=== PATIENT | male | born 1980 | race Caucasian/White ===

== ENCOUNTER 2023-07-26 10:57 | Outpatient (AMB) | payer OTHER, SELFPAY ==
--- NOTE | 2023-07-26 11:20 | MHC.OFFWIV ---
Intake Vital Signs 07/26/23 11:21 07/26/23 11:23 Height 5 ft 7 in Weight 266 lb 2 oz BMI 41.7 BP 144/83 H 143/89 H Blood Pressure Location Lt brachial Rt radial Position Sitting Sitting Respiration 16 Pulse 96 Pulse Source Pulse Oximeter Temp 97.9 F Temp Source Temporal Artery Scan Pulse Oximetry (%) 98 Oxygen Delivery Method Room Air Intake Visit Reasons: Neck pain Intake Note: Neck pain Patient Tobacco Use Status: Never used Tobacco Allergies No Known Allergies Allergy (Verified 07/26/23 11:21) Medication List - Last Reconciled 07/26/23 by Zaria Loco PA-C No Known Home Meds Do you need a note to return to daycare/school/sports/work: No HPI Neck pain HPI Details Pt is a 43 y/o male without any signficant pmhx, who presents neck pain that started 3 days ago. He thinks he woke up with a left sided stiff neck. He states moving his neck up and down is fine but going side to side is painful. He states turning to the right is harder. He has tried tylenol and motrin without relief. He states he tried a pill of oxycodone from previous surgery without relief. No fevers or chills. No headache. No visions changes, numbness/tingling, weakness. No tick bites. No previous surgery. No cp or sob. Denies any known history of hypertension. Blood pressure is a bit elevated today in the office and he thinks is due to his neck pain. PFSH Social History Patient Tobacco Use Status: Never used Tobacco Physical Exam Vital Signs: Last Vital Signs Temp 97.9 F 07/26/23 11:21 Pulse 96 07/26/23 11:21 Resp 16 07/26/23 11:21 BP 143/89 H 07/26/23 11:23 Pulse Ox 98 07/26/23 11:21 Oxygen Delivery Method Room Air 07/26/23 11:21 BMI result Body Mass Index 41.7 Const Orientation/consciousness: patient oriented x3 HEENT Ears: hearing grossly normal bilaterally Neck Other: Tenderness to palpation over the left cervical paraspinous muscles, left trapezius and scalene muscles. A muscle spasm is noted on the left trapezius. Neck: Yes normal visual inspection and Yes no meningeal signs Thyroid: Thyroid normal Lymphatic: no lymphadenopathy noted Resp Auscultation: clear to auscultation bilaterally Cardio Rate: regular rate Rhythm: regular rhythm Heart sounds: S1 normal heart sound present and S2 normal heart sound present Skin General skin exam: no rashes or lesions noted Neuro General: patient oriented x3, gait normal, no meningeal signs and no focal motor deficits Assessment & Plan Assessment & Plan (1) Cervical pain (neck): Code(s): M54.2 - Cervicalgia Plan: xray ordered will start naproxen and cyclobenzaprine. (2) Elevated blood pressure reading without diagnosis of hypertension: Code(s): R03.0 - Elevated blood-pressure reading, without diagnosis of hypertension Plan: Advised patient short term follow up with PCP to review. Patient understands and agrees with the plan. Orders: Orders XR cervical spine 3V Today M54.2 - Cervicalgia Medications: New cyclobenzaprine 10 mg PO TID 30 tabs 0RF 10 days naproxen 500 mg PO BID 60 tabs 0RF Coding Level of Care Code New Pt Level 3 (93657) Diagnoses Cervical pain (neck) M54.2 Elevated blood pressure reading without diagnosis of hypertension R03.0
[2023-07-26 11:21] VITALS: BP 144/83; PULSE 96; RESP 16; TEMP 36.6; O2SAT 98; BMI 41.7
[2023-07-26 11:23] VITALS: BP 143/89
== END 2023-07-26 12:08 | disposition home or self-care (01) ==
PROVIDERS: Visit Provider Physician Assistant
DX: M54.2 Cervicalgia (principal); R03.0 Elevated blood-pressure reading, without diagnosis of hypertension
CPT/HCPCS: 99203

== ENCOUNTER 2023-07-26 12:41 | Outpatient (REF) | payer OTHER, SELFPAY ==
--- NOTE | ~2023-07-26 | XR_ITS ---
EXAMINATION: XR CERVICAL SPINE CLINICAL INFORMATION: Patient states that her neck for 3 days, no trauma. COMPARISON: None available. TECHNIQUE: 4 views of the cervical spine. FINDINGS: Hardware minimally imaged in the upper central thorax. Straightening of the normal cervical lordosis. Degenerative changes between the anterior arch of C1 and the odontoid. Multilevel cervical spondylosis with moderate loss of disc space height and abundant hypertrophic change at C4-C5. XR/XR cervical spine 3V IMPRESSION: Multilevel cervical spondylosis most notable at C4-C5.
== END 2023-07-26 12:42 | disposition home or self-care (01) ==
LOC: HO.XRAY 12:41
PROVIDERS: PCP Physician Assistant Medical; Visit Provider Physician Assistant
DX: M54.2 Cervicalgia (principal)
CPT/HCPCS: 72040

== ENCOUNTER 2024-02-18 09:31 | Outpatient (AMB) | payer OTHER, SELFPAY ==
--- NOTE | 2024-02-18 09:33 | MHC.OFFWIV ---
Intake Vital Signs 02/18/24 09:36 02/18/24 10:10 Height 5 ft 10 in BP 134/76 Blood Pressure Location Rt brachial Position Sitting Respiration 14 Pulse 105 H 85 Pulse Source Pulse Oximeter Auscultation Pulse Oximetry (%) 96 Oxygen Delivery Method Room Air Intake Visit Reasons: congestion, ear pain Intake Note: Patient complaining of heavy congestion and pressure on head and both ears x 2 days Patient Tobacco Use Status: Never used Tobacco Allergies No Known Allergies Allergy (Verified 02/18/24 10:01) Medication List - Last Reconciled 02/18/24 by Flor Garcia, REGISTERED NURSE TEACHER- cyclobenzaprine 10 mg PO TID PRN naproxen 500 mg PO BID PRN semaglutide (weight loss) (Wegovy) 0.5 mg (0.5 mL) subcut QWEEK Do you need a note to return to daycare/school/sports/work: No HPI HPI Comments History of Present Illness Details The patient is a 43-year-old male presenting with ear pain, head congestion, and chest congestion of two days duration. He denies any fever or recent contact with anyone who is ill. The patient has a past medical history of asthma, which has not been active for over 20 years. At this time last year, he was diagnosed with a streptococcal pharyngitis, respiratory syncytial virus (RSV), and bilateral acute otitis media. Treatment at that time included amoxicillin, which was prescribed by his primary care provider. During the current episode, he experiences congestion affecting his head, chest, and ears. Initial self-management with [id number] Mucinex and Tylenol has provided inadequate relief of symptoms. Exam Awake alert NAD Sclera and conjunctiva clear bilat Nares with clear drainage bilat, turbinates edematous and erythematous, no sinus tenderness with palpation bilat TM intact + erythema and injection bilat L>R MMM, pharynx with exudate on L only RRR LS CTAB Plan - Initiate Amoxicillin/Clavulanate Augmentin) 1 tablet twice daily with food for seven days; advise on the potential for gastrointestinal upset. - Prescribe Fluticasone nasal spray, one spray per nostril twice daily, to be used until symptoms resolve. - Instruct the patient to replace toothbrush and change bed linens after 48 hours of antibiotic therapy to prevent reinfection. - Continue use of Mucinex and Tylenol as needed for symptom relief. - Educate the patient on signs of worsening symptoms or complications, and advise re-evaluation if no improvement within 48 hours or if symptoms worsen. Patient was informed and verbally consented to the use of an ambient scribe for clinic note documentation during this visit. [facility] Medical History (Updated 08/31/23 @ 17:23 by SIXTO Burt) Morbid obesity Hepatic steatosis Grief Acid reflux Psoriasis Emmet disease Arthritis Asthma Surgical History (Updated 08/31/23 @ 16:35 by Asia Perez CMA) H/O gastric sleeve Hx of laparoscopic gastric banding Status post LASIK surgery Family History (Updated 08/31/23 @ 16:37 by Asia Perez CMA) Mother Hypertension Diabetes Cardiovascular disease Thyroid disease Maternal Grandmother Hypertension Cardiovascular disease Pancreatic cancer Social History (Updated 08/31/23 @ 16:39 by Asia Perez CMA) Household Members: None Housing: House 75 years or older and lives alone: No Alcohol intake: never Patient Tobacco Use Status: Never used Tobacco e-Cigarette/Vaping Use: Never Used Second Hand Smoke Exposure: No service: No Current occupational status: unemployed Current occupational exposures/hazards: No Cognitive needs: No Hearing needs: No Vision needs: No Physical Exam Vital Signs: Last Vital Signs Pulse 105 H 02/18/24 09:36 Resp 14 02/18/24 09:36 BP 134/76 02/18/24 09:36 Pulse Ox 96 02/18/24 09:36 Oxygen Delivery Method Room Air 02/18/24 09:36 Assessment & Plan Assessment & Plan (1) Strep pharyngitis: Code(s): J02.0 - Streptococcal pharyngitis (2) Acute otitis media: Code(s): H66.90 - Otitis media, unspecified, unspecified ear Qualifiers: Otitis media type: suppurative Laterality: bilateral Recurrence: non-recurrent Spontaneous tympanic membrane rupture: without spontaneous rupture Qualified Code(s): H66.003 - Acute suppurative otitis media without spontaneous rupture of ear drum, bilateral Plan . Medications: New amoxicillin-pot clavulanate 875-125 mg 1 tab PO BID 7 days 14 tabs 0RF fluticasone propionate 50 mcg/actuation administer into each nostril 1 spray intranasal BID 16 grams 0RF Patient Instructions: Good hand hygiene and respiratory etiquette can reduce the spread of all types of group A strep infection. Hand hygiene is especially important after coughing and sneezing and before preparing foods or eating. Good respiratory etiquette involves covering your cough or sneeze. Do not share food or drinks. Treating an infected person with an antibiotic for 12 hours or longer limits their ability to transmit the bacteria. Thus, people with group A strep pharyngitis should stay home from work, school, or daycare until: They are afebrile AND At least 12?24 hours after starting appropriate antibiotic therapy I also recommend changing toothbrush and washing bed linen in hot water 24 hours after starting antibiotics Coding Level of Care Code Est Pt Level 3 (22104) Diagnoses Strep pharyngitis J02.0 Non-recurrent acute suppurative otitis media of both ears without spontaneous rupture of tympanic membranes H66.003 Otitis media type: suppurative Laterality: bilateral Recurrence: non-recurrent Spontaneous tympanic membrane rupture: without spontaneous rupture
[2024-02-18 09:36] VITALS: BP 134/76; PULSE 105; RESP 14; O2SAT 96
[2024-02-18 10:10] VITALS: PULSE 85
== END 2024-02-18 10:13 | disposition home or self-care (01) ==
LOC: HO.HMCWIW 09:31
PROVIDERS: PCP Physician Assistant Medical; Visit Provider Nurse Practitioner Family
DX: J02.0 Streptococcal pharyngitis (principal); H66.003 Acute suppurative otitis media without spontaneous rupture of ear drum, bilateral

== ENCOUNTER → 2024-02-18 09:31 | Outpatient (BNVA) | payer OTHER, SELFPAY | PROVIDERS: PCP Physician Assistant Medical; Visit Provider Nurse Practitioner Family | DX: J02.0 Streptococcal pharyngitis (principal); H66.003 Acute suppurative otitis media without spontaneous rupture of ear drum, bilateral | CPT/HCPCS: 99212 ==

== ENCOUNTER 2024-03-24 15:01 | Outpatient (AMB) | payer OTHER, SELFPAY ==
--- NOTE | 2024-03-24 15:25 | A.OFFPC_ITS ---
Vital Signs 03/24/24 15:27 Height 5 ft 10 in Weight 269 lb 2 oz BMI 38.6 BP 136/64 Blood Pressure Location Lt brachial Position Sitting Pulse 72 Pulse Source Pulse Oximeter Pulse Oximetry (%) 98 Oxygen Delivery Method Room Air Intake Visit Reasons: Wegovy Medication Intake Note: Follow up Wegovy. Toannt had Wegovy for a month Child Caregiver Private Home Required: No Allergies No Known Allergies Allergy (Verified 03/24/24 15:25) Tobacco use date assessed: 08/31/23 Dental Screening Dental Screen Date: 08/31/23 HPI HPI Comments History of Present Illness Details This is a 43-year-old male with a past medical history of hepatic steatosis, GERD, obesity, TERESA and neck pain presenting for follow up. Patient had a gastric sleeve procedure in April 2023. This is with Dr. Desir. Weight loss has been slow so he started Wegovy. He is taking 0.5 mg weekly. He denies side effects, but it is not helping him lose weight at this dosage. He is trying to walk and eat healthy, but he has not been 100% focused because his mother on Jun 24 2023 on hospice. He also lost his job last year. 3-year-old daughter has been sick for the past week which is stressful. He is interested in seeing weight loss management/bariatric surgery at [facility] for a 2nd opinion. He wonders if he should have had a different procedure rather than gastric sleeve. TERESA-was not able to tolerate mask. Not interested in referral back to sleep Medicine at this time or sleep study. He is avoiding alcohol. He is sleeping on his side. We also discussed he could try a mandibular advancement device and wedge pillow. Patient does not have a diagnosis of hypertension. Blood pressure today is 136/64. He has not been sleeping well with his daughter being sick this week. Patient did not end up seeing a therapist after his mother because it was 2-1/2 months until he was contacted by behavioral health, and there was a language barrier with the provider. He says he is doing okay. PHQ-9 is positive though he says some of these answers are related to stressors within the past week and using food as a coping mechanism for this. I did give him the information for [facility] which is for grief counseling online, and he may look into this. Declines further referrals at this time. ROS: Constitutional: No unexplained weight loss, fever, chills or night sweats. Eyes: No vision changes, blurry vision Respiratory: No shortness of breath, cough or sputum production. Cardiovascular: No chest pain, chest pressure or chest discomfort. No palpitations or pedal edema. Gastrointestinal: No anorexia, nausea, vomiting or diarrhea. No abdominal pain or blood in stool. Neurologic: No headache, dizziness, syncope Psychiatric: No SI/HI. Physical exam: Constitutional: Alert, in no distress. Neck: Supple, Full range of motion. No lymphadenopathy. No palpable thyroid masses. Respiratory: Clear to auscultation. Cardiovascular: S1 S2 regular. No murmurs. Extremities: Warm and well perfused. No clubbing, cyanosis or edema. Psychiatric: Normal mood and affect [facility] Medical History (Updated 08/31/23 @ 17:23 by SIXTO Burt) Morbid obesity Hepatic steatosis Grief Acid reflux Psoriasis Roosevelt disease Arthritis Asthma Surgical History (Updated 08/31/23 @ 16:35 by Asia Perez CMA) H/O gastric sleeve Hx of laparoscopic gastric banding Status post LASIK surgery Family History (Updated 08/31/23 @ 16:37 by Asia Perez CMA) Mother Hypertension Diabetes Cardiovascular disease Thyroid disease Maternal Grandmother Hypertension Cardiovascular disease Pancreatic cancer Social History (Updated 08/31/23 @ 16:39 by Asia Perez [facility]) Household Members: None Housing: House 75 years or older and lives alone: No Alcohol intake: never Patient Tobacco Use Status: Never used Tobacco e-Cigarette/Vaping Use: Never Used Second Hand Smoke Exposure: No service: No Current occupational status: unemployed Current occupational exposures/hazards: No Cognitive needs: No Hearing needs: No Vision needs: No Questionnaire PHQ-9 Over the last 2 weeks, how often have you been bothered by any of the following problems? 1. Little interest or pleasure in doing things: not at all 2. Feeling down, depressed, or hopeless: several days 3. Trouble falling or staying asleep, or sleeping too much: more than half the days 4. Feeling tired or having little energy: more than half the days 5. Poor appetite or overeating: nearly every day 6. Feeling bad about yourself - or that you are a failure or have let yourself or your family down: not at all 7. Trouble concentrating on things, such as reading the newspaper or watching television: several days 8. Moving or speaking so slowly that other people could have noticed. Or the opposite - being so fidgety or restless that you have been moving around a lot more than usual: not at all 9. Thoughts that you would be better off or of hurting yourself in some way: not at all Total score: 9 Source: Developed by Drs. Eugenio Miller, Balaji Smalls and colleagues, with an educational kalpana from [employer]. Thrive Questionnaire Date Thrive assessed: 03/04/24 I am a: Patient What is your living situation today?: I have a steady place to live Within the past 12 months, did the food you bought not last and you didn't have the money to get more?: Never true Within the past 12 months, did you worry whether your food would run out before you got money to buy more?: Sometimes True Do you have trouble paying for medicines?: No Do you have trouble getting transportation to medical appointments?: No Do you have trouble paying your heating and electricity bill?: Yes Do you have trouble taking care of your child, family member or friend?: No Do you have trouble with day-to-day activities such as bathing, preparing meals, shopping, managing finances, etc.?: No Are you currently unemployed and looking for a job?: No Are you interested in more education?: No Please select the resources that you would like help with: None Currently or been in a relationship where the following occur: No concerns reported THRIVE Score: 2 MARKO-7 AMB Questionnaire MARKO-7 Date MARKO - 7 assessed: 08/31/23 Source: Developed by Drs. Eugenio Miller, Alexus Raza, Balaji Redd and colleagues, with an educational kalpana from [employer]. Physical exam (Primary Care) Vital Signs: Last Vital Signs Pulse 72 03/24/24 15:27 BP 136/64 03/24/24 15:27 Pulse Ox 98 03/24/24 15:27 Oxygen Delivery Method Room Air 03/24/24 15:27 BMI result Body Mass Index 38.6 Tobacco/Smoking Status: Tobacco use Status Tobacco use date assessed 08/31/23 03/24/24 15:31 Patient Tobacco Use Status Never used Tobacco 03/24/24 15:31 e-Cigarette/Vaping Use Never Used 03/24/24 15:31 PHQ-9: PHQ-9 Score PHQ-9: Total score 9 03/24/24 15:31 Thrive Assessment: Date of Thrive Assessment Date Thrive assessed 03/04/24 03/24/24 15:31 Currently or been in a relationship where the following occur: No concerns reported Coding Level of Care Code Est Pt Level 4 (07120) Complex EM visit Add On G2211 Diagnoses Morbid obesity E66.01 Elevated blood pressure reading without diagnosis of hypertension R03.0 Assessment & Plan Assessment & Plan (1) Morbid obesity: Code(s): E66.01 - Morbid (severe) obesity due to excess calories Category: Medical Plan: Continue efforts at weight loss. Reviewed portion sizes and meal planning. Patient referred to weight management/bariatric surgery at [facility]. Increase Wegovy to 1 mg weekly. Side effects and administration reviewed. Patient instructed to send me a message on the portal in a few weeks after trying this dosage. He deferred follow up in person for this. (2) Elevated blood pressure reading without diagnosis of hypertension: Code(s): R03.0 - Elevated blood-pressure reading, without diagnosis of hypertension Category: Medical Plan: Restrict sodium, reduce stress when possible, avoid caffeine. Recheck at physical exam in 3 months. Plan Follow up in 3 months for a physical exam. He will have fasting labs done prior to this. Orders: Orders Lipid Panel Today E66.01 - Morbid (severe) obesity due to excess calories, E78.5 - Hyperlipidemia, unspecified, E80.4 - Gilbert syndrome, K76.0 - Fatty (change of) liver, not elsewhere classified, L40.9 - Psoriasis, unspecified Comprehensive Met. Panel Today E66.01 - Morbid (severe) obesity due to excess calories, E80.4 - Gilbert syndrome, K76.0 - Fatty (change of) liver, not elsewhere classified, L40.9 - Psoriasis, unspecified TSH reflex Free T4 Today E66.01 - Morbid (severe) obesity due to excess calories, E80.4 - Gilbert syndrome, K76.0 - Fatty (change of) liver, not elsewhere classified, L40.9 - Psoriasis, unspecified Complete Blood Count no Diff Today E66.01 - Morbid (severe) obesity due to excess calories, E80.4 - Gilbert syndrome, K76.0 - Fatty (change of) liver, not elsewhere classified, L40.9 - Psoriasis, unspecified Prostate Specific Antigen Today E66.01 - Morbid (severe) obesity due to excess calories, E80.4 - Gilbert syndrome, K76.0 - Fatty (change of) liver, not elsewhere classified, L40.9 - Psoriasis, unspecified, Z12.5 - Encounter for screening for malignant neoplasm of prostate Referrals Bariatric Surgery Referral E66.01 - Morbid (severe) obesity due to excess calories, E66.9 - Obesity, unspecified Medications: New semaglutide (weight loss) (Wegovy) administer weeks 9 through 12 of therapy 1 mg (0.5 mL) subcut QWEEK 2 mL 0RF Discontinued semaglutide (weight loss) (Wegovy) administer weeks 5 through 8 of therapy Discontinued Reason: Doctor's Order 0.5 mg (0.5 mL) subcut QWEEK 2 mL 0RF
[2024-03-24 15:27] VITALS: BP 136/64; PULSE 72; O2SAT 98; BMI 38.6
--- OUTSIDE RECORDS SUMMARY | 2024-03-24 16:34 | XMS_ITS | Clinical Summary ---
Author Organization [facility] Address [address] [place] [id number] Care Team Providers Care Pointer Helper Name Role Phone Pcp, No Primary Care Provider Unavailabl e Allergies No known active allergies Medications Medication Sig Dispensed Refills Start Date End Date Status cephalexin (KEFLEX) 500 MG capsuleIndications:P aronychia of finger of right hand Take 1 capsule (500 mg total) by mouth 4 (four) times a day. 28 capsule 07/28/2018 Active Social History Tobacco Use Types Packs/Day Years Used Date Smoking Tobacco: Some Days Smokeless Tobacco: Never Sex and Gender Information Value Date Recorded Sex Assigned at Not on file Gender Identity Not on file Sexual Orientation Not on file Last Filed Vital Signs Vital Sign Reading Time Taken Comments Blood Pressure 138/89 05/25/2020 7:47 PM EDT Pulse 95 05/25/2020 7:47 PM EDT Temperature 37.1 ??C (98.8 ??F) 05/25/2020 7:47 PM ED T Respiratory Rate 12 07/28/2018 3:21 PM EDT Oxygen Saturation 98% 05/25/2020 7:47 PM EDT Inhaled Oxygen Concentration - - Weight 107 kg (235 lb) 05/25/2020 7:47 PM EDT Height 170.2 cm (5' 7 ) 05/25/2020 7:47 PM EDT Body Mass Index 36.81 05/25/2020 7:47 PM EDT Plan of Treatment Health Maintenance Due Date Last Done Comments Hepatitis C Virus Screening 1981 HIV Screening 1994 DTaP/Tdap/Td Vaccines (1 - Tdap) 2000 Hepatitis B Vaccines (1 of 3 - 19+ 3-dose series) 2000 Influenza Vaccine 09/20/2023 COVID-19 Vaccine (2023-2 5 season) 2023 HPV Vaccines Aged Out No longer eligi ble based on patient's age to complete this topic Pneumococcal Vaccine: Pediat shadia (0-5 Years) and At-Risk Patients (6 to 49 Years) Aged Out No longer eligible b ased on patient's age to complete this topic Care Teams Pointer Helper Relationship Specialty Start Date End Date Pcp, No PCP - General General Medicine 01/09/22
== END 2024-03-24 16:05 | disposition home or self-care (01) ==
PROVIDERS: PCP Physician Assistant Medical; Visit Provider Physician Assistant Medical
DX: R03.0 Elevated blood-pressure reading, without diagnosis of hypertension (principal); E66.01 Morbid (severe) obesity due to excess calories; Z68.38 Body mass index [BMI] 38.0-38.9, adult

== ENCOUNTER → 2024-03-24 15:01 | Outpatient (BNVA) | payer OTHER, SELFPAY | PROVIDERS: PCP Physician Assistant Medical; Visit Provider Physician Assistant Medical | DX: E66.01 Morbid (severe) obesity due to excess calories (principal); Z68.38 Body mass index [BMI] 38.0-38.9, adult; R03.0 Elevated blood-pressure reading, without diagnosis of hypertension | CPT/HCPCS: 99212 ==

== ENCOUNTER 2024-06-13 08:59 | Outpatient (REF) | payer OTHER, SELFPAY ==
--- OUTSIDE RECORDS SUMMARY | 2024-06-13 09:06 | XMS_ITS | Clinical Summary ---
Author Organization [facility] Address [address] [place] [address] Care Team Providers Care Hydro Pneumatic Tester Name Role Phone Pcp, No Primary Care Provider Unavailabl e Allergies No known active allergies Medications cephalexin (KEFLEX) 500 MG capsuleIndicati ons:Paronychia of finger of right hand Take 1 capsule (500 mg total) by mouth 4 (four) times a day. 28 capsule 07/28/2018 Active Social History Tobacco Use Types Packs/Day Years Used Date Smoking Tobacco: Some Days Smokeless Tobacco: Never Sex and Gender Information Value Date Recorded Sex Assigned at Not on file Legal Sex Male 11:24 PM EDT Gender Identity Not on file Sexual Orientation [...] on patient's age to complete this topic Insurance [facility] [id number] [place] [address] Care Teams Hydro Pneumatic Tester Relationship Specialty Start Date End Date Pcp, No PCP - General General Medicine 01/09/22
--- OUTSIDE RECORDS SUMMARY | 2024-06-13 09:06 | XMS_ITS ---
[facility] Name [facility] Care Team Organization Name Specialty Phone Email Start Date End RUST Sarah Field Primary [facility] 02/21/2021 02/21/2021
[2024-06-13 10:28] LABS: Hematocrit 47.3 % (42.0-52.0); Hemoglobin 16.4 g/dl (14.0-18.0); Mean Corpuscular HGB Conc 34.7 g/dl (31.0-36.0); Mean Corpuscular Hemoglobin 29.1 pg (27.0-33.0); Mean Corpuscular Volume 83.9 fL (80.0-98.0); Mean Platelet Volume 10.5 fL (9.4-12.4); Platelet Count 247 X10*3/uL (160-400); Red Blood Count 5.64 X10*6/uL (4.60-5.80); Red Cell Distribution Width 12.2 % (11.0-16.0); White Blood Count 4.8 X10*3/uL (4.8-10.8)
[2024-06-13 11:04] LABS: Prostate Specific Antigen 0.77 ng/mL (<0.05-4.0)
[2024-06-13 11:18] LABS: Alanine Aminotransferase 33 U/L (0-40); Albumin Level 4.4 g/dL (3.5-5.0); Alkaline Phosphatase 86 U/L (39-117); Anion Gap 11 (12-20); Aspartate Amino Transferase 31 U/L (5-37); Blood Urea Nitrogen 16 mg/dL (9-16); Calcium 9.9 mg/dL (8.4-10.2); Carbon Dioxide 25 mmol/L (22-29); Chloride 107 mmol/L (96-108); Cholesterol 200 mg/dL (<200); Estimated Glomerular Filt Rate > 60; Glucose Random 89 mg/dL (60-115); HDL Cholesterol 43 mg/dL (>40); LDL Cholesterol Calculated 132 mg/dL (<100); Potassium 4.2 mmol/L (3.3-5.1); Sodium 139 mmol/L (135-145); Total Protein 7.9 g/dL (6.5-8.0); Triglycerides 129 mg/dL (<150)
== END 2024-06-13 09:00 | disposition home or self-care (01) ==
LOC: HO.WFDLDS 08:59
PROVIDERS: Visit Provider Physician Assistant Medical
DX: E66.01 Morbid (severe) obesity due to excess calories (principal); K76.0 Fatty (change of) liver, not elsewhere classified; L40.9 Psoriasis, unspecified; E80.4 Gilbert syndrome; E78.5 Hyperlipidemia, unspecified; Z12.5 Encounter for screening for malignant neoplasm of prostate
CPT/HCPCS: 36415; 80053; 80061; 84153; 84443; 85027